=== PATIENT | male | born 2000 | race Caucasian/White ===

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

== ENCOUNTER 2022-01-20 16:15 | Emergency (ER) | payer OTHER ==
[2022-01-20 16:26] VITALS: TEMP 98.8
[2022-01-20] MEDS ORDERED: SODIUM CHLORIDE 0.9% 1,000 ML IV STA (16:43)
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
--- NOTE | 2022-01-20 17:07 | CT ---
EXAMINATION TYPE: CT brain wo con DATE OF EXAM: 01/20/2022 COMPARISON: None HISTORY: fall CT DLP: 1100 mGycm Automated exposure control for dose reduction was used. Images of the brain obtained without contrast. The ventricles and sulci appear normal. There is no mass effect or midline shift. No sign of intracra nial hemorrhage. Calvarium is intact. There is normal aeration of the mastoid sinuses. IMPRESSION: Negative unenhanced head CT scan
[2022-01-20 17:18] LABS: Basophils # (A) 0.1 k/uL (0-0.2); Basophils % (A) 0 %; Eosinophils # (A) 0.2 k/uL (0-0.7); Eosinophils % (A) 1 %; HCT 45.6 % (39.0-53.0); HGB 16.1 gm/dL (13.0-17.5); Lymphocytes # (A) 1.4 k/uL (1.0-4.8); Lymphocytes % (A) 12 %; MCH 29.9 pg (25.0-35.0); MCHC 35.4 g/dL (31.0-37.0); MCV 84.4 fL (80.0-100.0); Mean Platelet Volume 7.8; Monocytes # (A) 0.6 k/uL (0-1.0); Monocytes % (A) 5 %; Neutrophils # (A) 9.6 k/uL (1.3-7.7); Neutrophils % (A) 81 %; Platelet Count 240 k/uL (150-450); RDW 11.3 % (11.5-15.5); WBC 11.9 k/uL (4.0-11.0)
--- NOTE | 2022-01-20 17:29 | CT ---
EXAMINATION TYPE: CT facial bones wo con DATE OF EXAM: 01/20/2022 COMPARISON: None HISTORY: 305.4 CT DLP: left sied facial pain mGycm Automated exposure control for dose reduction was used. Images obtained from the bottom of the mandible to the top of the frontal sinuses with no contrast. The mandibular ring is intact. Temporomandibular joints are intact. Zygomatic arches appear normal. T he maxilla is intact. No evidence of orbital blowout fracture. No evidence of retro-orbital mass. Orb ital margins are intact. There is normal aeration of the temporal bones. There is mild mucosal thicke frances posterior ethmoid sinuses. IMPRESSION: No evidence of traumatic injury of the facial bones. No fracture. Ethmoid sinusitis.
[2022-01-20 17:33] LABS: ALT 16 U/L (4-49); AST 24 U/L (17-59); African American GFR (CKD) >90 (>60 ml/min/1.73 sqM); Albumin 4.8 g/dL (3.5-5.0); Alkaline Phosphatase 53 U/L (38-126); Anion Gap 8 mmol/L; Blood Urea Nitrogen 10 mg/dL (9-20); Calcium 9.3 mg/dL (8.4-10.2); Carbon Dioxide 29 mmol/L (22-30); Chloride 103 mmol/L (98-107); Glucose 95 mg/dL (74-99); Non-African American GFR(CKD) >90 (>60 ml/min/1.73 sqM); Potassium 4.6 mmol/L (3.5-5.1); Sodium 140 mmol/L (137-145); Total Bilirubin 0.8 mg/dL (0.2-1.3); Total Protein 7.2 g/dL (6.3-8.2)
[2022-01-20 18:17] LABS: Appearance,Urine Clear (Clear); Bilirubin,Urine Negative (Negative); Blood,Urine Negative (Negative); Color,Urine Colorless; Glucose,Urine (UA) Negative (Negative); Ketones,Urine Negative (Negative); Leukocyte Esterase,Urine Negative (Negative); Nitrite,Urine Negative (Negative); PH, Urine 7.5 (5.0-8.0); Protein,Urine Negative (Negative); Specific Gravity,Urine 1.003 (1.001-1.035); Urobilinogen,Urine <2.0 mg/dL (<2.0)
[2022-01-20 18:41] LABS: Amphetamine Screen,Urine Not Detected (NotDetected); Barbiturate Screen,Urine Not Detected (NotDetected); Benzodiazepines Screen,Urine Not Detected (NotDetected); Cocaine Screen,Urine Not Detected (NotDetected); Methadone Screen, Urine Not Detected (NotDetected); Opiate Screen,Urine Not Detected (NotDetected); Oxycodone Screen, Urine Not Detected (NotDetected); Phencyclidine Screen,Urine Not Detected (NotDetected); Tricyclic Antidepressant,Urine Not Detected (NotDetected); Urn Cannabinoid Scrn Detected (NotDetected)
[2022-01-20 19:25] VITALS: BP 112/56; PULSE 71; RESP 16
== END 2022-01-20 19:25 | disposition home or self-care (01) ==
LOC: EC 16:15
DX: S06.9X1A Unspecified intracranial injury with loss of consciousness of 30 minutes or less, initial encounter (principal); R55 Syncope and collapse; S00.03XA Contusion of scalp, initial encounter; F17.290 Nicotine dependence, other tobacco product, uncomplicated; F12.90 Cannabis use, unspecified, uncomplicated; Z79.899 Other long term (current) drug therapy; W18.39XA Other fall on same level, initial encounter
CPT/HCPCS: 36415; 70450; 70486; 80053; 80306; 81003; 83605; 85025; 96360; 99284

== ENCOUNTER 2022-03-12 05:43 | Emergency (ER) | payer OTHER ==
[2022-03-12 05:46] VITALS: BP 128/88; PULSE 64; RESP 18; TEMP 97.6
[2022-03-12] MEDS ORDERED: ACET/COD 300 MG/30 MG STARTER PACK 6 TAB BTL PO STA (06:23)
[2022-03-12] MEDS ORDERED: HYDROcodone/APAP 5-325MG 1 EACH TAB PO STA (06:23)
--- NOTE | 2022-03-12 06:29 | ED ---
ENT HPI - General Chief complaint: Dental/Oral Stated complaint: Dental pain Time Seen by Provider: 03/12/22 06:01 Source: patient, RN notes reviewed Mode of arrival: ambulatory Limitations: no limitations - History of Present Illness Initial comments: 21-year-old male presents emergency Department chief complaint of right-sided dental pain. Patient states has been increasing last 2 weeks. Patient states that it's right upper and lower. He's been attempting to get in to the dentist unable to. Patient has NO KNOWN DRUG ALLERGIES. No difficulty swallowing no neck pain neck stiffness no reports of fevers or chills. - Related Data Home Medications Medication Instructions Recorded Confirmed Acetaminophen [Tylenol Extra 1,000 mg PO DAILY PRN 12/02/16 12/02/16 Strength] Dm/Acetaminophen/Doxylamine [Vicks 30 ml PO HS PRN 12/02/16 12/02/16 Nyquil Cold & Flu Liquid] Phenylephrine/Dm/Acetaminop/GG 30 ml PO DAILY PRN 12/02/16 12/02/16 [Vicks Dayquil Severe Cold-Flu] guaiFENesin SYRUP 100MG/5ML 400 mg PO DAILY PRN 12/02/16 12/02/16 [Robitussin] Previous Rx's Medication Instructions Recorded Amoxicillin/Potassium Clav 1 tab PO Q12HR #20 tab 12/02/16 [Augmentin 875-125 Tablet] Hydrocodone/Acetaminophen [[place] 1 each PO Q6HR PRN #15 tab 12/11/16 5-325] Ibuprofen [Motrin] 600 mg PO Q6HR PRN #40 day 12/11/16 Amoxic-Pot Clav 875-125Mg 1 tab PO Q12HR #20 tab 03/12/22 [Augmentin 875-125] Ibuprofen [Motrin] 600 mg PO Q8HR PRN #20 tab 03/12/22 Allergies Allergy/AdvReac Type Severity Reaction Status Date / Time No Known Allergies Allergy Verified 03/12/22 05:44 Review of Systems ROS Statement: Those systems with pertinent positive or pertinent negative responses have been documented in the HPI. ROS Other: All systems not noted in ROS Statement are negative. Past Medical History Past Medical History: No Reported History History of Any Multi-Drug Resistant Organisms: None Reported Past Surgical History: Orthopedic Surgery Past Psychological History: No Psychological Hx Reported Smoking Status: Vaper Past Alcohol Use History: Occasional Past Drug Use History: Marijuana General Exam Limitations: no limitations General appearance: alert, in no apparent distress Head exam: Present: atraumatic, normocephalic, normal inspection Eye exam: Present: normal appearance, PERRL, EOMI. Absent: scleral icterus, conjunctival injection, periorbital swelling ENT exam: Present: mucous membranes moist. Absent: normal exam, normal oropharynx (Right lower and upper posterior molar dental Zandra, dental fractures no drainable abscess) Neck exam: Present: normal inspection, full ROM. Absent: tenderness, meningismus, lymphadenopathy Respiratory exam: Present: normal lung sounds bilaterally. Absent: respiratory distress, wheezes, rales, rhonchi, stridor Cardiovascular Exam: Present: regular rate, normal rhythm, normal heart sounds. Absent: systolic murmur, diastolic murmur, rubs, gallop, clicks GI/Abdominal exam: Present: soft, normal bowel sounds. Absent: distended, tenderness, guarding, rebound, rigid Course Vital Signs 03/12/22 05:45 Temperature 97.6 F Pulse Rate 64 Respiratory 18 Rate Blood Pressure 128/88 O2 Sat by Pulse 98 Oximetry Medical Decision Making - Medical Decision Making 21-year-old male presented for dental pain. Patient be discharged with pain control, antibiotics. Was pt. sent in by a medical professional or institution? @ -no Did you speak to anyone other than the patient for history? @ -no Did you review nursing and triage notes? @ -agree and reviewed Were old charts reviewed? @ -no Differential Diagnosis? @ -Dental infection, dental fracture, dental caries, dental abscess, this is not meant to be all-inclusive EKG interpreted by me (3pts min.)? @ -No X-rays interpreted by me (1pt min.)? @ -none CT interpreted by me (1pt min.)? @ none U/S interpreted by me (1pt. min.)? @ none What testing was considered but not performed? (CT, X-rays, U/S, labs)? Why? @ no What meds were considered but not given? Why? @ no Did you discuss the management of the patient with other professionals? @ -no Did you reconcile home meds? @ -no Was smoking cessation discussed for >3mins.? @ -I discussed smoking cessation for greater than 3 minutes. The risk of smoking were discussed with the patient including but not limited to risks of cancer, stroke, coronary artery disease and COPD. Also discussed with patient were multiple methods of quitting smoking. Lastly we discussed the financial cost of smoking. Was critical care preformed (if so, how long)? @ -no Were there social determinants of health that impacted care today? How? (Homelessness, low income, unemployed, alcoholism, drug addiction, transportation, low edu. Level, literacy, decrease access to med. care, intermediate, rehab)? @ -no Was there de-escalation of care discussed even if they declined? (Discuss DNR or withdrawal of care, Hospice)? @ -no What co-morbidities impacted this encounter? (DM, HTN, Smoking, COPD, CAD, Cancer, CVA, Hep., AIDS, mental health diagnosis, sleep apnea, morbid obesity)? @ -smoking Was patient admitted / discharged? @ -discharged Undiagnosed new problem with uncertain prognosis? @ -none Drug Therapy requiring intensive monitoring for toxicity (Heparin, Nitro, I nsulin, Cardizem)? @ -none Were any procedures done? @ -no Diagnosis/symptom? @ -Dental infection Acute, or Chronic, or Acute on Chronic? @ -acute Uncomplicated (without systemic symptoms) or Complicated (systemic symptoms)? @ -uncomplicated Side effects of treatment? @ -none Exacerbation, Progression, or Severe Exacerbation] @ -no Poses a threat to life or bodily function? @ -no Diagnosis/symptom? @ -Dental fracture Acute, or Chronic, or Acute on Chronic? @ -Acute Uncomplicated (without systemic symptoms) or Complicated (systemic symptoms)? @ -Uncomplicated Side effects of treatment? @ -no Exacerbation, Progression, or Severe Exacerbation] @ no Poses a threat to life or bodily function? @ -no Disposition Clinical Impression: Toothache, Dental infection, Fracture of tooth Disposition: HOME SELF-CARE Condition: Stable Instructions (If sedation given, give patient instructions): Toothache (ED) Additional Instructions: Please return to the Emergency Department if symptoms worsen or any other concerns. Prescriptions: Amoxic-Pot Clav 875-125Mg [Augmentin 875-125] 1 tab PO Q12HR #20 tab Ibuprofen [Motrin] 600 mg PO Q8HR PRN #20 tab PRN Reason: Pain Is patient prescribed a controlled substance at d/c from ED?: No Referrals: Suzie Norman MD [Primary Care Provider] - 1-2 days Time of Disposition: 06:29
== END 2022-03-12 07:14 | disposition home or self-care (01) ==
LOC: EC 05:43
DX: S02.5XXA Fracture of tooth (traumatic), initial encounter for closed fracture (principal); F17.290 Nicotine dependence, other tobacco product, uncomplicated; F12.90 Cannabis use, unspecified, uncomplicated; X58.XXXA Exposure to other specified factors, initial encounter
CPT/HCPCS: 99282

== ENCOUNTER 2022-06-23 02:07 | Emergency (ER) | payer OTHER ==
[2022-06-23 02:14] VITALS: RESP 14; TEMP 96.9
[2022-06-23] MEDS ORDERED: SODIUM CHLORIDE 0.9% 1,000 ML IV ONE (02:23)
[2022-06-23] MEDS ORDERED: ONDANSETRON 4 MG/2 ML VIAL IVP STA (02:23)
[2022-06-23] MEDS ORDERED: ONDANSETRON 4 MG ODT STARTER PACK 2 TAB BTL PO STA (03:32)
--- NOTE | 2022-06-23 03:32 | ED ---
Alcohol HPI - General Chief Complaint: Alcohol Stated Complaint: ETOH Time Seen by Provider: 06/23/22 02:19 Source: family Mode of arrival: wheelchair Limitations: altered mental status - History of Present Illness Initial Comments: Patient is a 22-year-old male presenting with alcohol intoxication. Patient's mother is present, states that the patient had several drinks this evening with family members. At home he began vomiting and complaining of some abdominal pain. At this time the patient is sleeping, answers questions with one-word answers. No acute distress. No hypoxia. He is able to maintain his airway. - Related Data Home Medications Medication Instructions Recorded Confirmed Acetaminophen [Tylenol Extra 1,000 mg PO DAILY PRN 12/02/16 12/02/16 Strength] Dm/Acetaminophen/Doxylamine [Vicks 30 ml PO HS PRN 12/02/16 12/02/16 Nyquil Cold & Flu Liquid] Phenylephrine/Dm/Acetaminop/GG 30 ml PO DAILY PRN 12/02/16 12/02/16 [Vicks Dayquil Severe Cold-Flu] guaiFENesin SYRUP 100MG/5ML 400 mg PO DAILY PRN 12/02/16 12/02/16 [Robitussin] Previous Rx's Medication Instructions Recorded Amoxicillin/Potassium Clav 1 tab PO Q12HR #20 tab 12/02/16 [Augmentin 875-125 Tablet] Hydrocodone/Acetaminophen [[place] 1 each PO Q6HR PRN #15 tab 12/11/16 5-325] Ibuprofen [Motrin] 600 mg PO Q6HR PRN #40 day 12/11/16 Amoxic-Pot Clav 875-125Mg 1 tab PO Q12HR #20 tab 03/12/22 [Augmentin 875-125] Amoxic-Pot Clav 875-125Mg 1 tab PO Q12HR #20 tab 03/12/22 [Augmentin 875-125] HYDROcodone/APAP 5-325MG [[place] 1 tab PO Q6HR PRN 3 Days #12 tab 03/12/22 5-325] Ibuprofen [Motrin] 600 mg PO Q8HR PRN #20 tab 03/12/22 Ibuprofen [Motrin] 600 mg PO Q8HR PRN #20 tab 03/12/22 Allergies Allergy/AdvReac Type Severity Reaction Status Date / Time No Known Allergies Allergy Verified 06/23/22 02:11 Review of Systems ROS Statement: Those systems with pertinent positive or pertinent negative responses have been documented in the HPI. ROS Other: All systems not noted in ROS Statement are negative. Past Medical History Past Medical History: No Reported History History of Any Multi-Drug Resistant Organisms: None Reported Past Surgical History: Orthopedic Surgery Past Psychological History: No Psychological Hx Reported Smoking Status: Vaper Past Alcohol Use History: Occasional Past Drug Use History: Marijuana General Exam Limitations: altered mental status General appearance: in no apparent distress, appears intoxicated Head exam: Present: atraumatic, normocephalic, normal inspection Neck exam: Present: normal inspection Respiratory exam: Present: normal lung sounds bilaterally. Absent: respiratory distress, wheezes, rales, rhonchi, stridor Cardiovascular Exam: Present: regular rate, normal rhythm, normal heart sounds. Absent: systolic murmur, diastolic murmur, rubs, gallop, clicks Neurological exam: Present: altered Psychiatric exam: Present: normal affect, normal mood Skin exam: Present: warm, dry, intact, normal color. Absent: rash Course Vital Signs 06/23/22 02:12 Temperature 96.9 F L Pulse Rate 74 Respiratory 14 Rate Blood Pressure 122/78 O2 Sat by Pulse 94 L Oximetry Medical Decision Making - Medical Decision Making Was pt. sent in by a medical professional or institution (IVANNA Villatoro, ENROLLED AGENT, urgent care, hospital, or [facility]...) When possible be specific @ -No Did you speak to anyone other than the patient for history (EMS, parent, family, police, friend...)? What history was obtained from this source @ -Spoke to mother who gave majority of history Did you review nursing and triage notes (agree or disagree)? Why? @ -I reviewed and agree with nursing and triage notes Were old charts reviewed (outside hosp., previous admission, EMS record, old EKG, old radiological studies, urgent care reports/EKG's, [facility] records)? Report findings @ -No old charts were reviewed Differential Diagnosis (chest pain, altered mental status, abdominal pain women, abdominal pain men, vaginal bleeding, weakness, fever, dyspnea, syncope, headache, dizziness, GI bleed, back pain, seizure, CVA, palpatations, mental health, musculoskeletal)? @ -not applicable EKG interpreted by me (3pts min.). @ -As above X-rays interpreted by me (1pt min.). @ -None done CT interpreted by me (1pt min.). @ -None done U/S interpreted by me (1pt. min.). @ -None done What testing was considered but not performed or refused? (CT, X-rays, U/S, labs)? Why? @ -None What meds were considered but not given or refused? Why? @ -None Did you discuss the management of the patient with other professionals (professionals i.e. , PA, ENROLLED AGENT, lab, RT, psych nurse, school social worker, renewable energy trader, teacher, global chief experience officer, pillowcase turner)? Give summary @ -No Was smoking cessation discussed for >3mins.? @ -No Was critical care preformed (if so, how long)? @ -No Were there social determinants of health that impacted care today? How? (Homelessness, low income, unemployed, alcoholism, drug addiction, transportation, low edu. Level, literacy, decrease access to med. care, usp, rehab)? @ -No Was there de-escalation of care discussed even if they declined (Discuss DNR or withdrawal of care, Hospice)? DNR status @ -No What co-morbidities impacted this encounter? (DM, HTN, Smoking, COPD, CAD, Cancer, CVA, ARF, Chemo, Hep., AIDS, mental health diagnosis, sleep apnea, morbid obesity)? @ -None Was patient admitted / discharged? Hospital course, mention meds given and route, prescriptions, significant lab abnormalities, going to OR and other pertinent info. @ -Patient is a 22-year-old male presenting for alcohol intoxication. The patient's mother states that he had several drinks with family members this evening, at home he was complaining of abdominal discomfort and vomiting. On physical examination patient is maintaining his airway, he is able to answer questions with brief answers. No hypoxia. Able to arouse. He is given 1 L normal saline and Zofran. On reassessment patient remains stable condition. He'll be discharged home into the care of his mother. Follow-up with PCP. Report back to ER with any new or worsening symptoms. Discussed return parameters and answered all questions. Patient's mother conveyed verbal understanding and agreed to the plan. I discussed this case in detail with my attending Dr. Nash Undiagnosed new problem with uncertain prognosis? @ -No Drug Therapy requiring intensive monitoring for toxicity (Heparin, Nitro, Insulin, Cardizem)? @ -No Were any procedures done? @ -No Diagnosis/symptom? @ -Alcohol intoxication Acute, or Chronic, or Acute on Chronic? @ -Acute Uncomplicated (without systemic symptoms) or Complicated (systemic symptoms)? @ -complicated Side effects of treatment? @ -No Exacerbation, Progression, or Severe Exacerbation? @ -No Poses a threat to life or bodily function? How? (Chest pain, [place], [place], pneumonia, PE, COPD, DKA, ARF, appy, cholecystitis, CVA, Diverticulitis, Homicidal, Suicidal, threat to staff... and all critical care pts) @ - Disposition Clinical Impression: Alcoholic intoxication Disposition: HOME SELF-CARE Condition: Good Instructions (If sedation given, give patient instructions): Alcohol Intoxication (ED) Additional Instructions: Report back to ER with any new or worsening symptoms Is patient prescribed a controlled substance at d/c from ED?: No Referrals: Suzie Norman MD [Primary Care Provider] - 1-2 days Time of Disposition: 03:32
[2022-06-23 03:42] VITALS: BP 111/62; PULSE 65
== END 2022-06-23 03:42 | disposition home or self-care (01) ==
LOC: EC 02:07
DX: F10.129 Alcohol abuse with intoxication, unspecified (principal); F17.290 Nicotine dependence, other tobacco product, uncomplicated; F12.90 Cannabis use, unspecified, uncomplicated
CPT/HCPCS: 99283; 96374; 96361; J2405; S0119; 99284

== ENCOUNTER 2022-08-10 10:06 | Emergency (ER) | payer OTHER ==
[2022-08-10] MEDS ORDERED: IPRATROPIUM-ALBUTEROL 3 ML NEB INHALATION STA (10:21)
[2022-08-10] MEDS ORDERED: OXYMETAZOLINE 0.05% NASL SPRAY 1 SPRAY BOTTLE NASAL STA (10:21)
[2022-08-10] MEDS ORDERED: DEXAMETHASONE SOD PHOSPHATE 10 MG/ML 1 ML VIAL IM STA (10:22)
--- NOTE | 2022-08-10 10:26 | ED ---
URI HPI - General Chief Complaint: Upper Respiratory Infection Stated Complaint: congestion,sore throat Time Seen by Provider: 08/10/22 10:08 Source: patient, RN notes reviewed Mode of arrival: ambulatory Limitations: no limitations - History of Present Illness Initial Comments: This is a 22-year-old male who presents to the emergency department for a sore throat and congestion. States that this started yesterday with a sore throat. The sore throat has started to improve, and his primary symptom at this time is congestion. He tried using a neti pot, but states that he felt like this made his ears more clogged. He has a nonproductive cough that is triggered by nasal drainage. He feels like the congestion makes it hard to take a deep breath, but has otherwise not had any shortness of breath or chest pain. Denies any fevers or sick contacts. Denies any fevers, chills, chest pain, palpitations, abdominal pain, nausea, vomiting, diarrhea, back pain, or headaches. MD Complaint: cough, sore throat, nasal congestion Onset/Timin -: days(s) - Related Data Home Medications Medication Instructions Recorded Confirmed Acetaminophen [Tylenol Extra 1,000 mg PO DAILY PRN 12/02/16 12/02/16 Strength] Dm/Acetaminophen/Doxylamine [Vicks 30 ml PO HS PRN 12/02/16 12/02/16 Nyquil Cold & Flu Liquid] Phenylephrine/Dm/Acetaminop/GG 30 ml PO DAILY PRN 12/02/16 12/02/16 [Vicks Dayquil Severe Cold-Flu] guaiFENesin SYRUP 100MG/5ML 400 mg PO DAILY PRN 12/02/16 12/02/16 [Robitussin] Previous Rx's Medication Instructions Recorded Amoxicillin/Potassium Clav 1 tab PO Q12HR #20 tab 12/02/16 [Augmentin 875-125 Tablet] Hydrocodone/Acetaminophen [[place] 1 each PO Q6HR PRN #15 tab 12/11/16 5-325] Ibuprofen [Motrin] 600 mg PO Q6HR PRN #40 day 12/11/16 Amoxic-Pot Clav 875-125Mg 1 tab PO Q12HR #20 tab 03/12/22 [Augmentin 875-125] Amoxic-Pot Clav 875-125Mg 1 tab PO Q12HR #20 tab 03/12/22 [Augmentin 875-125] HYDROcodone/APAP 5-325MG [[place] 1 tab PO Q6HR PRN 3 Days #12 tab 03/12/22 5-325] Ibuprofen [Motrin] 600 mg PO Q8HR PRN #20 tab 03/12/22 Ibuprofen [Motrin] 600 mg PO Q8HR PRN #20 tab 03/12/22 Albuterol Inhaler [Ventolin Hfa 1 - 2 puff INHALATION Q6H PRN #1 08/10/22 Inhaler] each Ipratropium [place] 0.06%Nasal 2 spray EA NOSTRIL BID #15 ml 08/10/22 [Atrovent Nasal 0.06%] Allergies Allergy/AdvReac Type Severity Reaction Status Date / Time No Known Allergies Allergy Verified 08/10/22 10:11 Review of Systems ROS Statement: Those systems with pertinent positive or pertinent negative responses have been documented in the HPI. ROS Other: All systems not noted in ROS Statement are negative. Past Medical History Past Medical History: No Reported History History of Any Multi-Drug Resistant Organisms: None Reported Past Surgical History: Orthopedic Surgery Past Psychological History: No Psychological Hx Reported Smoking Status: Vaper Past Alcohol Use History: Occasional Past Drug Use History: Marijuana General Exam Limitations: no limitations General appearance: alert, in no apparent distress Head exam: Present: atraumatic, normocephalic, normal inspection ENT exam: Present: normal exam, normal oropharynx, mucous membranes moist, TM's normal bilaterally, normal external ear exam Respiratory exam: Present: normal lung sounds bilaterally. Absent: respiratory distress, wheezes, rales, rhonchi, stridor Cardiovascular Exam: Present: regular rate, normal rhythm, normal heart sounds. Absent: systolic murmur, diastolic murmur, rubs, gallop, clicks Neurological exam: Present: alert, oriented X3, CN II-XII intact Psychiatric exam: Present: normal affect, normal mood Skin exam: Present: warm, dry, intact, normal color. Absent: rash Course Vital Signs 08/10/22 08/10/22 08/10/22 10:10 10:52 12:15 Temperature 98.3 F Pulse Rate 88 76 76 Respiratory 22 Rate Blood Pressure 119/76 O2 Sat by Pulse 97 97 Oximetry 08/10/22 08/10/22 08/10/22 12:22 12:24 12:57 Temperature 98.1 F 98.2 F Pulse Rate 80 76 72 Respiratory 14 14 Rate Blood Pressure 115/76 112/76 O2 Sat by Pulse 98 99 Oximetry Medical Decision Making - Medical Decision Making This is a 22-year-old male who presents to the emergency department for congestion and a sore throat. Was pt. sent in by a medical professional or institution? @ -No Did you speak to anyone other than the patient for history? @ -No Did you review nursing and triage notes? @ -Yes, and I agree, it is accurate with regards to the patient's symptoms. Were old charts reviewed? @ -No Differential Diagnosis? @ -Differential Sore Throat: Strep pharyngitis, herpes zoster, COVID, influenza, GERD, allergic rhinitis, mononucleosis, this is not meant to be an all-inclusive list. EKG interpreted by me (3pts min.)? @ -Not obtained X-rays interpreted by me (1pt min.)? @ -Not obtained CT interpreted by me (1pt min.)? @ -Not obtained U/S interpreted by me (1pt. min.)? @ -Not obtained What testing was considered but not performed? (CT, X-rays, U/S, labs)? Why? @ -None What meds were considered but not given? Why? @ -None Did you discuss the management of the patient with other professionals? @ -No Did you reconcile home meds? @ -No Was smoking cessation discussed for >3mins.? @ -No Was critical care preformed (if so, how long)? @ -No Were there social determinants of health that impacted care today? How? (Homelessness, low income, unemployed, alcoholism, drug addiction, transportation, low edu. Level, literacy, decrease access to med. care, snf, rehab)? @ -No Was there de-escalation of care discussed even if they declined? (Discuss DNR or withdrawal of care, Hospice)? @ -No What co-morbidities impacted this encounter? (DM, HTN, Smoking, COPD, CAD, Cancer, CVA, Hep., AIDS, mental health diagnosis, sleep apnea, morbid obesity)? @ -None Was patient admitted / discharged? @ -Discharged. COVID, influenza, RSV, and strep testing were negative. Duoneb breathing treatment administered with improvement in symptoms. Advised the patient that this is most likely viral in nature. Afrin nasal spray provided, which he states was beneficial in terms of helping the congestion and feeling of fullness in the ears. Instructed him to avoid using this for more than 3 days due to the risk of dependence. Prescription for albuterol inhaler and ipratropium nasal spray provided with dosing instructions reviewed. Advised that if his nose becomes too dry, he should stop using the nasal sprays provided and use saline nasal spray instead to help moisturize the nasal passages. Otherwise advised to continue with supportive care. Undiagnosed new problem with uncertain prognosis? @ -None Drug Therapy requiring intensive monitoring for toxicity (Heparin, Nitro, Insulin, Cardizem)? @ -None Were any procedures done? @ -None Diagnosis/symptom? @ -Viral URI Acute, or Chronic, or Acute on Chronic? @ -Acute Uncomplicated (without systemic symptoms) or Complicated (systemic symptoms)? @ -Uncomplicated Side effects of treatment? @ -None Exacerbation, Progression, or Severe Exacerbation] @ -Not applicable Poses a threat to life or bodily function? @ -No Return precautions reviewed in depth, the patient is instructed to return to the emergency department with any new, worsening, or concerning symptoms. Patient verbalized understanding. This case was discussed in detail with the attending ED physician, Dr. Gutierrez. Presentation, findings, and treatment plan discussed in detail as well. - Lab Data Lab Results 08/10/22 08/10/22 Range/Units 10:33 10:33 Influenza Type A (PCR) Not Detected (Not Detectd) Influenza Type B (PCR) Not Detected (Not Detectd) RSV (PCR) Not Detected (Not Detectd) SARS-CoV-2 (PCR) Not Detected (Not Detectd) Group A Strep (PCR) NOT DETECTED (Not Detectd) Disposition Clinical Impression: Viral URI Disposition: HOME SELF-CARE Instructions (If sedation given, give patient instructions): Upper Respiratory Infection (ED) Additional Instructions: Return to the emergency department with any new, worsening, or concerning symptoms. You can use the decongestant nasal spray provided here and the ipratropium nasal spray prescribed as needed a few times daily for symptomatic management. Do not use the decongestant nasal spray for more than 3 days due to the risk of becoming dependent on it. The ipratropium nasal spray will help with postnasal drainage. This can be used for 4-5 days. You can use the albuterol inhaler every 4-6 hours as needed for shortness of breath. Follow up with your primary care provider in 1-2 days. Prescriptions: Ipratropium [place] 0.06%Nasal [Atrovent Nasal 0.06%] 2 spray EA NOSTRIL BID #15 ml Albuterol Inhaler [Ventolin Hfa Inhaler] 1 - 2 puff INHALATION Q6H PRN #1 each PRN Reason: Shortness Of Breath Is patient prescribed a controlled substance at d/c from ED?: No Referrals: Suzie Norman MD [Primary Care Provider] - 1-2 days
[2022-08-10 12:27] VITALS: RESP 14
[2022-08-10 12:59] VITALS: BP 112/76; PULSE 72; TEMP 98.2
== END 2022-08-10 12:59 | disposition home or self-care (01) ==
LOC: EC 10:06
DX: J06.9 Acute upper respiratory infection, unspecified (principal); F12.90 Cannabis use, unspecified, uncomplicated; F17.290 Nicotine dependence, other tobacco product, uncomplicated; Z20.822 Contact with and (suspected) exposure to COVID-19
CPT/HCPCS: 94640; 87651; 87636; 99283; 96372; J1100

== ENCOUNTER 2022-12-16 02:33 | Emergency (ER) | payer OTHER ==
[2022-12-16] MEDS ORDERED: KETOROLAC 15 MG/ML 1 ML VIAL IM STA (02:52)
[2022-12-16] MEDS ORDERED: HYDROcodone/APAP 7.5-325MG 1 EACH TAB PO ONE (02:52)
--- NOTE | 2022-12-16 02:52 | ED ---
ENT HPI - General Chief complaint: Dental/Oral Stated complaint: Dental Pain Time Seen by Provider: 12/16/22 02:43 Source: patient Mode of arrival: ambulatory Limitations: no limitations - History of Present Illness Initial comments: 22-year-old male presenting with chief complaint of dental pain. Pain is been ongoing for the last 2 days. Located on the left lower side. Patient has a known dental carry to this region. He states that is very difficult to get in with his dentist. No difficulty breathing or swallowing. No fevers or chills. No headache or neck pain. - Related Data Home Medications Medication Instructions Recorded Confirmed Acetaminophen [Tylenol Extra 1,000 mg PO DAILY PRN 12/02/16 12/02/16 Strength] Dm/Acetaminophen/Doxylamine [Vicks 30 ml PO HS PRN 12/02/16 12/02/16 Nyquil Cold & Flu Liquid] Phenylephrine/Dm/Acetaminop/GG 30 ml PO DAILY PRN 12/02/16 12/02/16 [Vicks Dayquil Severe Cold-Flu] guaiFENesin SYRUP 100MG/5ML 400 mg PO DAILY PRN 12/02/16 12/02/16 [Robitussin] Previous Rx's Medication Instructions Recorded Amoxicillin/Potassium Clav 1 tab PO Q12HR #20 tab 12/02/16 [Augmentin 875-125 Tablet] Hydrocodone/Acetaminophen [[place] 1 each PO Q6HR PRN #15 tab 12/11/16 5-325] Ibuprofen [Motrin] 600 mg PO Q6HR PRN #40 day 12/11/16 Amoxic-Pot Clav 875-125Mg 1 tab PO Q12HR #20 tab 03/12/22 [Augmentin 875-125] Amoxic-Pot Clav 875-125Mg 1 tab PO Q12HR #20 tab 03/12/22 [Augmentin 875-125] HYDROcodone/APAP 5-325MG [[place] 1 tab PO Q6HR PRN 3 Days #12 tab 03/12/22 5-325] Ibuprofen [Motrin] 600 mg PO Q8HR PRN #20 tab 03/12/22 Ibuprofen [Motrin] 600 mg PO Q8HR PRN #20 tab 03/12/22 Albuterol Inhaler [Ventolin Hfa 1 - 2 puff INHALATION Q6H PRN #1 08/10/22 Inhaler] each Ipratropium [place] 0.06%Nasal 2 spray EA NOSTRIL BID #15 ml 08/10/22 [Atrovent Nasal 0.06%] Acetaminophen-Codeine 300-30mg 1 tab PO Q6H PRN 3 Days #12 tablet 12/16/22 [Tylenol w/codeine #3] Amoxic-Pot Clav 875-125Mg 1 tab PO BID 7 Days #14 tab 12/16/22 [Augmentin 875-125] Allergies Allergy/AdvReac Type Severity Reaction Status Date / Time No Known Allergies Allergy Verified 08/10/22 10:11 Review of Systems ROS Statement: Those systems with pertinent positive or pertinent negative responses have been documented in the HPI. ROS Other: All systems not noted in ROS Statement are negative. Past Medical History Past Medical History: No Reported History History of Any Multi-Drug Resistant Organisms: None Reported Past Surgical History: Orthopedic Surgery Past Psychological History: No Psychological Hx Reported Smoking Status: Vaper Past Alcohol Use History: Occasional Past Drug Use History: Marijuana General Exam Limitations: no limitations General appearance: alert, in no apparent distress Head exam: Present: atraumatic, normocephalic, normal inspection Eye exam: Present: normal appearance, EOMI Expanded Mouth exam: Present: normal external inspection, tongue normal. Absent: drooling, trismus, muffled voice Teeth exam: Present: dental caries, dental tenderness # Throat exam: normal inspection Neck exam: Present: normal inspection, full ROM Respiratory exam: Absent: respiratory distress Neurological exam: Present: alert, oriented X3 Psychiatric exam: Present: normal affect, normal mood Skin exam: Present: warm, dry. Absent: rash Course Vital Signs 12/16/22 02:38 Temperature 97.8 F Pulse Rate 63 Respiratory 18 Rate Blood Pressure 126/78 O2 Sat by Pulse 98 Oximetry Medical Decision Making - Medical Decision Making Was pt. sent in by a medical professional or institution (, PA, PSYCHIATRIC ASSISTANT, urgent care, hospital, or prison...) When possible be specific @ -No Did you speak to anyone other than the patient for history (EMS, parent, family, police, friend...)? What history was obtained from this source @ -No Did you review nursing and triage notes (agree or disagree)? Why? @ -I reviewed and agree with nursing and triage notes Were old charts reviewed (outside hosp., previous admission, EMS record, old EKG, old radiological studies, urgent care reports/EKG's, prison records)? Report findings @ -No old charts were reviewed Differential Diagnosis (chest pain, altered mental status, abdominal pain women, abdominal pain men, vaginal bleeding, weakness, fever, dyspnea, syncope, headache, dizziness, GI bleed, back pain, seizure, CVA, palpatations, mental health, musculoskeletal)? @ -Differential includes dental pain, dental abscess, Akil's angina EKG interpreted by me (3pts min.). @ -As above X-rays interpreted by me (1pt min.). @ -None done CT interpreted by me (1pt min.). @ -None done U/S interpreted by me (1pt. min.). @ -None done What testing was considered but not performed or refused? (CT, X-rays, U/S, labs)? Why? @ -None What meds were considered but not given or refused? Why? @ -None Did you discuss the management of the patient with other professionals (professionals i.e. , PA, PSYCHIATRIC ASSISTANT, lab, RT, psych nurse, social science professor, door captain, teacher, education officer, caser up)? Give summary @ -No Was smoking cessation discussed for >3mins.? @ -No Was critical care preformed (if so, how long)? @ -No Were there social determinants of health that impacted care today? How? (Homelessness, low income, unemployed, alcoholism, drug addiction, transportation, low edu. Level, literacy, decrease access to med. care, alf, rehab)? @ -No Was there de-escalation of care discussed even if they declined (Discuss DNR or withdrawal of care, Hospice)? DNR status @ -No What co-morbidities impacted this encounter? (DM, HTN, Smoking, COPD, CAD, Cancer, CVA, ARF, Chemo, Hep., AIDS, mental health diagnosis, sleep apnea, morbid obesity)? @ -None Was patient admitted / discharged? Hospital course, mention meds given and route, prescriptions, significant lab abnormalities, going to OR and other pertinent info. @ -22-year-old male presenting with chief complaint of dental pain ongoing for 2 days. No trismus or muffled voice. Normal posterior pharynx. There is notable decay to the bottom left molar. Patient will be given Tylenol 3 for pain and Augmentin for potential infection. Instructed to follow up with dentist. Follow-up with PCP. Report back to ER with any new or worsening symptoms. Discussed return parameters and answered all questions. Patient conveyed verbal understanding and agreed to the plan. I discussed this case in detail with my attending Dr. Ayon Undiagnosed new problem with uncertain prognosis? @ -No Drug Therapy requiring intensive monitoring for toxicity (Heparin, Nitro, Insulin, Cardizem)? @ -No Were any procedures done? @ -No Diagnosis/symptom? @ -Dental abscess Acute, or Chronic, or Acute on Chronic? @ -Acute Uncomplicated (without systemic symptoms) or Complicated (systemic symptoms)? @ -Uncomplicated Side effects of treatment? @ -No Exacerbation, Progression, or Severe Exacerbation? @ -No Poses a threat to life or bodily function? How? (Chest pain, USA, MA, pneumonia, PE, COPD, DKA, ARF, appy, cholecystitis, CVA, Diverticulitis, Homicidal, Suicidal, threat to staff... and all critical care pts) @ -No Disposition Clinical Impression: Dental abscess Disposition: HOME SELF-CARE Condition: Good Instructions (If sedation given, give patient instructions): Dental Abscess (ED) Additional Instructions: Follow-up with PCP. Report back to ER if any new or worsening symptoms. Please follow up with the [facility] dental clinic. [facility] [place] [address]. Phone number for new patients or [phone] for existing patients. Prescriptions: Amoxic-Pot Clav 875-125Mg [Augmentin 875-125] 1 tab PO BID 7 Days #14 tab Acetaminophen-Codeine 300-30mg [Tylenol w/codeine #3] 1 tab PO Q6H PRN 3 Days #12 tablet PRN Reason: Pain Is patient prescribed a controlled substance at d/c from ED?: No Referrals: Suzie Norman MD [Primary Care Provider] - 1-2 days Time of Disposition: 02:50
[2022-12-16 03:04] VITALS: BP 126/78; PULSE 63; RESP 18; TEMP 97.8
== END 2022-12-16 03:13 | disposition home or self-care (01) ==
LOC: EC 02:33
DX: K04.7 Periapical abscess without sinus (principal); F17.290 Nicotine dependence, other tobacco product, uncomplicated
CPT/HCPCS: 99282; 96372; J1885

== ENCOUNTER 2023-04-26 09:32 | Emergency (ER) | payer OTHER ==
[2023-04-26 10:02] VITALS: TEMP 98.7
[2023-04-26] MEDS: SODIUM CHLORIDE 0.9% 1,000 ML IV STA (10:42)
[2023-04-26] MEDS: ONDANSETRON 4 MG/2 ML VIAL IVP STA (10:42)
[2023-04-26] MEDS: MORPHINE SULFATE 4 MG/ML SYRINGE IV STA (10:43)
--- NOTE | 2023-04-26 10:45 | ED ---
General Adult HPI - General Chief complaint: Nausea/Vomiting/Diarrhea Stated complaint: vomiting Time Seen by Provider: 04/26/23 09:50 Source: patient, RN notes reviewed Mode of arrival: ambulatory Limitations: no limitations - History of Present Illness Initial comments: 22-year-old male presents to the emergency room for a chief complaint of nausea vomiting. Patient states that for the past 3 days he has not been able to keep much down and has been vomiting frequently. He also has abdominal pain. The last time this happened he had coronavirus. He has felt chilled but has not had true fevers.Patient has no other complaints at this time including shortness of breath, chest pain, headache, or visual changes. - Related Data Home Medications Medication Instructions Recorded Confirmed Acetaminophen [Tylenol Extra 1,000 mg PO DAILY PRN 12/02/16 12/02/16 Strength] Dm/Acetaminophen/Doxylamine [Vicks 30 ml PO HS PRN 12/02/16 12/02/16 Nyquil Cold & Flu Liquid] Phenylephrine/Dm/Acetaminop/GG 30 ml PO DAILY PRN 12/02/16 12/02/16 [Vicks Dayquil Severe Cold-Flu] guaiFENesin SYRUP 100MG/5ML 400 mg PO DAILY PRN 12/02/16 12/02/16 [Robitussin] Previous Rx's Medication Instructions Recorded Amoxicillin/Potassium Clav 1 tab PO Q12HR #20 tab 12/02/16 [Augmentin 875-125 Tablet] Hydrocodone/Acetaminophen [[place] 1 each PO Q6HR PRN #15 tab 12/11/16 5-325] Ibuprofen [Motrin] 600 mg PO Q6HR PRN #40 day 12/11/16 Amoxic-Pot Clav 875-125Mg 1 tab PO Q12HR #20 tab 03/12/22 [Augmentin 875-125] Amoxic-Pot Clav 875-125Mg 1 tab PO Q12HR #20 tab 03/12/22 [Augmentin 875-125] HYDROcodone/APAP 5-325MG [[place] 1 tab PO Q6HR PRN 3 Days #12 tab 03/12/22 5-325] Ibuprofen [Motrin] 600 mg PO Q8HR PRN #20 tab 03/12/22 Ibuprofen [Motrin] 600 mg PO Q8HR PRN #20 tab 03/12/22 Albuterol Inhaler [Ventolin Hfa 1 - 2 puff INHALATION Q6H PRN #1 08/10/22 Inhaler] each Ipratropium [place] 0.06%Nasal 2 spray EA NOSTRIL BID #15 ml 08/10/22 [Atrovent Nasal 0.06%] Acetaminophen-Codeine 300-30mg 1 tab PO Q6H PRN 3 Days #12 tablet 12/16/22 [Tylenol w/codeine #3] Amoxic-Pot Clav 875-125Mg 1 tab PO BID 7 Days #14 tab 12/16/22 [Augmentin 875-125] Ondansetron Odt [Zofran Odt] 4 mg PO Q8HR PRN #14 tab 04/26/23 Allergies Allergy/AdvReac Type Severity Reaction Status Date / Time No Known Allergies Allergy Verified 04/26/23 09:38 Review of Systems ROS Statement: Those systems with pertinent positive or pertinent negative responses have been documented in the HPI. ROS Other: All systems not noted in ROS Statement are negative. Past Medical History Past Medical History: No Reported History History of Any Multi-Drug Resistant Organisms: None Reported Past Surgical History: Orthopedic Surgery Past Psychological History: No Psychological Hx Reported Smoking Status: Vaper Past Alcohol Use History: Occasional Past Drug Use History: Marijuana General Exam Limitations: no limitations General appearance: alert, in no apparent distress Head exam: Present: atraumatic Eye exam: Present: normal appearance, PERRL, EOMI. Absent: scleral icterus, conjunctival injection ENT exam: Present: normal exam, mucous membranes moist Neck exam: Present: normal inspection, full ROM. Absent: tenderness Respiratory exam: Present: normal lung sounds bilaterally. Absent: respiratory distress, wheezes Cardiovascular Exam: Present: regular rate, normal rhythm, normal heart sounds GI/Abdominal exam: Present: soft, tenderness (Minimal left upper and lower quadrant tenderness without guarding or rebound. No right upper or lower quadrant tenderness.), normal bowel sounds. Absent: distended, guarding, rebound Neurological exam: Present: alert Course Vital Signs 04/26/23 04/26/23 09:36 10:50 Temperature 98.7 F Pulse Rate 70 Respiratory 20 18 Rate Blood Pressure 115/81 117/69 O2 Sat by Pulse 99 98 Oximetry Medical Decision Making - Medical Decision Making Was pt. sent in by a medical professional or institution (Dr., PA, TIMBER SELECTOR, urgent care, hospital, or fci...) When possible be specific @ -[No] Did you speak to anyone other than the patient for history (EMS, parent, family, police, friend...)? What history was obtained from this source @ -[No] Did you review nursing and triage notes (agree or disagree)? Why? @ -[I reviewed and agree with nursing and triage notes] Were old charts reviewed (outside hosp., previous admission, EMS record, old EKG, old radiological studies, urgent care reports/EKG's, fci records)? Report findings @ -[No old charts were reviewed] Differential Diagnosis (chest pain, altered mental status, abdominal pain women, abdominal pain men, vaginal bleeding, weakness, fever, dyspnea, syncope, headache, dizziness, GI bleed, back pain, seizure, CVA, palpatations, mental health)? @ -Differential Abdominal Pain Women: Appendicitis, Cholecystitis, diverticulosis, ischemic bowel, pancreatitis, hepatitis, UTI, gastroenteritis, AAA, incarcerated hernia, bowel obstruction, constipation, inflammatory bowel, hepatitis, peptic ulcer disease, splenic infarction, perforated viscus, vulvitis, ovarian torsion, PID, kidney stone, placenta abruption, this is not meant to be an all-inclusive list EKG interpreted by me (3pts min.). @ -None done X-rays interpreted by me (1pt min.). @ -NOn obstructive KUB CT interpreted by me (1pt min.). @ -[None done] U/S interpreted by me (1pt. min.). @ -[None done] What testing was considered but not performed or refused? (CT, X-rays, U/S, labs)? Why? @ -CT however patient had significant improvement in pain What meds were considered but not given or refused? Why? @ -[None] Did you discuss the management of the patient with other professionals (professionals i.e. IVANNA Villatoro, TIMBER SELECTOR, lab, RT, psych nurse, public health social worker, product tester, teacher, intelligence officer basic, assistant case manager)? Give summary @ -[No] Was smoking cessation discussed for >3mins.? @ -[No] Was critical care preformed (if so, how long)? @ -[No] Were there social determinants of health that impacted care today? How? (Homelessness, low income, unemployed, alcoholism, drug addiction, transportation, low edu. Level, literacy, decrease access to med. care, half-way, rehab)? @ -[No] Was there de-escalation of care discussed even if they declined (Discuss DNR or withdrawal of care, Hospice)? DNR status @ -[No] What co-morbidities impacted this encounter? (DM, HTN, Smoking, COPD, CAD, Cancer, CVA, ARF, Chemo, Hep., AIDS, mental health diagnosis, sleep apnea, morbid obesity)? @ -[None] Was patient admitted / discharged? Hospital course, mention meds given and route , prescriptions, significant lab abnormalities, going to OR and other pertinent info. @ -Vitals are stable. CBC and CMP are unremarkable. Urinalysis did show 3+ ketones. Influenza RSV and COVID-19 are negative. XR KUB showed a nonobstructive bowel gas pattern. Patient given pain medication and nausea medication. Feeling much better. Repeat abdominal exam revealed a nontender abdomen. Patient to be discharged home. However if he gets worsening abdominal pain he should return for CAT scan which she is aware of. Undiagnosed new problem with uncertain prognosis? @ -[No] Drug Therapy requiring intensive monitoring for toxicity (Heparin, Nitro, Insulin, Cardizem)? @ -[No] Were any procedures done? @ -[No] Diagnosis/symptom? @ -Abdominal pain, nausea vomiting Acute, or Chronic, or Acute on Chronic? @ -Acute Uncomplicated (without systemic symptoms) or Complicated (systemic symptoms)? @ -Uncomplicated Side effects of treatment? @ -[No] Exacerbation, Progression, or Severe Exacerbation? @ -[No] Poses a threat to life or bodily function? How? (Chest pain, USA, PR, pneumonia, PE, COPD, DKA, ARF, appy, cholecystitis, CVA, Diverticulitis, Homicidal, Suicidal, threat to staff... and all critical care pts) @ -[No] - Lab Data Result diagrams: 04/26/23 10:39 04/26/23 10:39 Lab Results 04/26/23 04/26/23 04/26/23 Range/Units 10:39 10:39 10:39 WBC 8.6 (3.8-10.6) k/uL RBC 5.79 (4.30-5.90) m/uL Hgb 17.0 (13.0-17.5) gm/dL Hct 48.7 (39.0-53.0) % MCV 84.1 (80.0-100.0) fL MCH 29.3 (25.0-35.0) pg MCHC 34.9 (31.0-37.0) g/dL RDW 11.7 (11.5-15.5) % Plt Count 200 (150-450) k/uL MPV 7.1 Neutrophils % 79 % Lymphocytes % 11 % Monocytes % 6 % Eosinophils % 2 % Basophils % 1 % Neutrophils # 6.7 (1.3-7.7) k/uL Lymphocytes # 1.0 (1.0-4.8) k/uL Monocytes # 0.5 (0-1.0) k/uL Eosinophils # 0.1 (0-0.7) k/uL Basophils # 0.1 (0-0.2) k/uL Sodium 138 (137-145) mmol/L Potassium 4.3 (3.5-5.1) mmol/L Chloride 104 (98-107) mmol/L Carbon Dioxide 25 (22-30) mmol/L Anion Gap 9 mmol/L BUN 19 (9-20) mg/dL Creatinine 0.81 (0.66-1.25) mg/dL Est GFR (CKD-EPI)AfAm >90 (>60 ml/min/1.73 sqM) Est GFR (CKD-EPI)NonAf >90 (>60 ml/min/1.73 sqM) Glucose 93 (74-99) mg/dL Calcium 9.6 (8.4-10.2) mg/dL Total Bilirubin 0.6 (0.2-1.3) mg/dL AST 31 (17-59) U/L ALT 20 (4-49) U/L Alkaline Phosphatase 75 (38-126) U/L Total Protein 7.1 (6.3-8.2) g/dL Albumin 4.4 (3.5-5.0) g/dL Amylase 55 (30-110) U/L Lipase 39 (23-300) U/L Urine Color Yellow Urine Appearance Clear (Clear) Urine pH 8.0 (5.0-8.0) Ur Specific [place] 1.034 (1.001-1.035) Urine Protein 1+ H (Negative) Urine Glucose (UA) Negative (Negative) Urine Ketones 3+ H (Negative) Urine Blood Negative (Negative) Urine Nitrite Negative (Negative) Urine Bilirubin Negative (Negative) Urine Urobilinogen 2.0 (<2.0) mg/dL Ur Leukocyte Esterase Negative (Negative) Urine RBC 2 (0-5) /hpf Urine WBC <1 (0-5) /hpf Ur Squamous Epith Cells <1 (0-4) /hpf Calcium Oxalate Crystal Rare H (None) /hpf Urine Mucus Occasional H (None) /hpf Influenza Type A (PCR) (Not Detectd) Influenza Type B (PCR) (Not Detectd) RSV (PCR) (Not Detectd) SARS-CoV-2 (PCR) (Not Detectd) 04/26/23 Range/Units 10:39 WBC (3.8-10.6) k/uL RBC (4.30-5.90) m/uL Hgb (13.0-17.5) gm/dL Hct (39.0-53.0) % MCV (80.0-100.0) fL MCH (25.0-35.0) pg MCHC (31.0-37.0) g/dL RDW (11.5-15.5) % Plt Count (150-450) k/uL MPV Neutrophils % % Lymphocytes % % Monocytes % % Eosinophils % % Basophils % % Neutrophils # (1.3-7.7) k/uL Lymphocytes # (1.0-4.8) k/uL Monocytes # (0-1.0) k/uL Eosinophils # (0-0.7) k/uL Basophils # (0-0.2) k/uL Sodium (137-145) mmol/L Potassium (3.5-5.1) mmol/L Chloride (98-107) mmol/L Carbon Dioxide (22-30) mmol/L Anion Gap mmol/L BUN (9-20) mg/dL Creatinine (0.66-1.25) mg/dL Est GFR (CKD-EPI)AfAm (>60 ml/min/1.73 sqM) Est GFR (CKD-EPI)NonAf (>60 ml/min/1.73 sqM) Glucose (74-99) mg/dL Calcium (8.4-10.2) mg/dL Total Bilirubin (0.2-1.3) mg/dL AST (17-59) U/L ALT (4-49) U/L Alkaline Phosphatase (38-126) U/L Total Protein (6.3-8.2) g/dL Albumin (3.5-5.0) g/dL Amylase (30-110) U/L Lipase (23-300) U/L Urine Color Urine Appearance (Clear) Urine pH (5.0-8.0) Ur Specific [place] (1.001-1.035) Urine Protein (Negative) Urine Glucose (UA) (Negative) Urine Ketones (Negative) Urine Blood (Negative) Urine Nitrite (Negative) Urine Bilirubin (Negative) Urine Urobilinogen (<2.0) mg/dL Ur Leukocyte Esterase (Negative) Urine RBC (0-5) /hpf Urine WBC (0-5) /hpf Ur Squamous Epith Cells (0-4) /hpf Calcium Oxalate Crystal (None) /hpf Urine Mucus (None) /hpf Influenza Type A (PCR) Not Detected (Not Detectd) Influenza Type B (PCR) Not Detected (Not Detectd) RSV (PCR) Not Detected (Not Detectd) SARS-CoV-2 (PCR) Not Detected (Not Detectd) Disposition Clinical Impression: Abdominal pain, Nausea and vomiting Disposition: HOME SELF-CARE Condition: Good Instructions (If sedation given, give patient instructions): Abdominal Pain (ED) Additional Instructions: Please take Zofran as directed. Take Motrin and Tylenol for pain. If symptoms worsen return to the emergency room. Prescriptions: Ondansetron Odt [Zofran Odt] 4 mg PO Q8HR PRN #14 tab PRN Reason: Nausea Is patient prescribed a controlled substance at d/c from ED?: No Referrals: Suzie Norman MD [Primary Care Provider] - 1-2 days Time of Disposition: 12:45
[2023-04-26 10:56] LABS: Basophils # (A) 0.1 k/uL (0-0.2); Basophils % (A) 1 %; Eosinophils # (A) 0.1 k/uL (0-0.7); Eosinophils % (A) 2 %; HCT 48.7 % (39.0-53.0); Lymphocytes % (A) 11 %; MCH 29.3 pg (25.0-35.0); MCHC 34.9 g/dL (31.0-37.0); MCV 84.1 fL (80.0-100.0); Mean Platelet Volume 7.1; Monocytes # (A) 0.5 k/uL (0-1.0); Monocytes % (A) 6 %; Neutrophils # (A) 6.7 k/uL (1.3-7.7); Neutrophils % (A) 79 %; Platelet Count 200 k/uL (150-450); RBC 5.79 m/uL (4.30-5.90); RDW 11.7 % (11.5-15.5); WBC 8.6 k/uL (3.8-10.6)
--- NOTE | 2023-04-26 11:11 | XR ---
EXAMINATION TYPE: XR KUB DATE OF EXAM: 04/26/2023 11:04 AM CLINICAL HISTORY: Abdominal pain with nausea and vomiting TECHNIQUE: Two Upright KUB images of the abdomen are obtained. COMPARISON: None. FINDINGS: Gas is seen in nondistended stomach. Scattered gas is seen in non-distended small and large bowel loops. There is no visceromegaly, pneumoperitoneum, or abnormal calcification appreciated. The lung bases are clear and the osseous structures are intact. IMPRESSION: Overall nonobstructive bowel gas pattern.
[2023-04-26 11:16] LABS: ALT 20 U/L (4-49); AST 31 U/L (17-59); African American GFR (CKD) >90 (>60 ml/min/1.73 sqM); Albumin 4.4 g/dL (3.5-5.0); Alkaline Phosphatase 75 U/L (38-126); Amylase 55 U/L (30-110); Anion Gap 9 mmol/L; Blood Urea Nitrogen 19 mg/dL (9-20); Calcium 9.6 mg/dL (8.4-10.2); Carbon Dioxide 25 mmol/L (22-30); Chloride 104 mmol/L (98-107); Glucose 93 mg/dL (74-99); Lipase 39 U/L (23-300); Non-African American GFR(CKD) >90 (>60 ml/min/1.73 sqM); Potassium 4.3 mmol/L (3.5-5.1); Sodium 138 mmol/L (137-145); Total Bilirubin 0.6 mg/dL (0.2-1.3); Total Protein 7.1 g/dL (6.3-8.2)
[2023-04-26 11:30] VITALS: RESP 18
[2023-04-26 11:46] LABS: Appearance,Urine Clear (Clear); Bilirubin,Urine Negative (Negative); Blood,Urine Negative (Negative); Calcium Oxalate Crystals,Urine Rare /hpf; Color,Urine Yellow; Glucose,Urine (UA) Negative (Negative); Ketones,Urine 3+ (Negative); Leukocyte Esterase,Urine Negative (Negative); Mucus,Urine Occasional /hpf; Nitrite,Urine Negative (Negative); Protein,Urine 1+ (Negative); RBC,Urine 2 /hpf (0-5); Specific Gravity,Urine 1.034 (1.001-1.035); Squamous Epithelial Cell,Urine <1 /hpf (0-4); WBC,Urine <1 /hpf (0-5)
[2023-04-26 13:20] VITALS: BP 111/69; PULSE 73
== END 2023-04-26 12:55 | disposition home or self-care (01) ==
LOC: EC 09:32
DX: R11.2 Nausea with vomiting, unspecified (principal); R10.9 Unspecified abdominal pain; F12.90 Cannabis use, unspecified, uncomplicated; F17.290 Nicotine dependence, other tobacco product, uncomplicated; Z20.822 Contact with and (suspected) exposure to COVID-19
CPT/HCPCS: 36415; 80053; 82150; 83690; 85025; 81001; 87636; 74018; 99284; 96374; 96375; 96361; J2270; J2405

== ENCOUNTER 2023-04-28 07:08 | Emergency (ER) | payer OTHER ==
[2023-04-28 08:37] VITALS: TEMP 98.1
[2023-04-28] MEDS: PANTOPRAZOLE 40 MG/10 ML VIAL IVP STA (08:37)
[2023-04-28] MEDS: diphenhydrAMINE 50 MG/ML 1 ML VIAL IVP STA (08:38)
[2023-04-28] MEDS: HALOPERIDOL LACTATE 5 MG/ML 1 ML VIAL IVP STA (08:39)
[2023-04-28] MEDS: SODIUM CHLORIDE 0.9% 1,000 ML IV STA ×2 (08:40→09:56)
--- NOTE | 2023-04-28 08:43 | ED ---
General Adult HPI - General Chief complaint: Abdominal Pain Stated complaint: Adominal Pain Time Seen by Provider: 04/28/23 08:00 Source: patient, RN notes reviewed, old records reviewed Mode of arrival: ambulatory Limitations: no limitations - History of Present Illness Initial comments: Is a 22-year-old male who presents as a reevaluation for abdominal pain, nausea, vomiting, diarrhea. Symptoms have been ongoing for 5 days now. Started last . Did present recently to the ER and workup was unremarkable and discharged home. He returns for continued symptoms. Is still having what he describes as nonbloody emesis as well as intermittent nonbloody diarrhea with left-sided abdominal pain. Does have a history of marijuana use. Has been attempting to use Zofran at home without much improvement in symptoms. Presents for reevaluation at this time. Denies any fevers or chills. Denies any known sick contacts. - Related Data Home Medications Medication Instructions Recorded Confirmed Acetaminophen [Tylenol Extra 1,000 mg PO DAILY PRN 12/02/16 12/02/16 Strength] Dm/Acetaminophen/Doxylamine [Vicks 30 ml PO HS PRN 12/02/16 12/02/16 Nyquil Cold & Flu Liquid] Phenylephrine/Dm/Acetaminop/GG 30 ml PO DAILY PRN 12/02/16 12/02/16 [Vicks Dayquil Severe Cold-Flu] guaiFENesin SYRUP 100MG/5ML 400 mg PO DAILY PRN 12/02/16 12/02/16 [Robitussin] Previous Rx's Medication Instructions Recorded Amoxicillin/Potassium Clav 1 tab PO Q12HR #20 tab 12/02/16 [Augmentin 875-125 Tablet] Hydrocodone/Acetaminophen [[place] 1 each PO Q6HR PRN #15 tab 12/11/16 5-325] Ibuprofen [Motrin] 600 mg PO Q6HR PRN #40 day 12/11/16 Amoxic-Pot Clav 875-125Mg 1 tab PO Q12HR #20 tab 03/12/22 [Augmentin 875-125] Amoxic-Pot Clav 875-125Mg 1 tab PO Q12HR #20 tab 03/12/22 [Augmentin 875-125] HYDROcodone/APAP 5-325MG [[place] 1 tab PO Q6HR PRN 3 Days #12 tab 03/12/22 5-325] Ibuprofen [Motrin] 600 mg PO Q8HR PRN #20 tab 03/12/22 Ibuprofen [Motrin] 600 mg PO Q8HR PRN #20 tab 03/12/22 Albuterol Inhaler [Ventolin Hfa 1 - 2 puff INHALATION Q6H PRN #1 08/10/22 Inhaler] each Ipratropium [place] 0.06%Nasal 2 spray EA NOSTRIL BID #15 ml 08/10/22 [Atrovent Nasal 0.06%] Acetaminophen-Codeine 300-30mg 1 tab PO Q6H PRN 3 Days #12 tablet 12/16/22 [Tylenol w/codeine #3] Amoxic-Pot Clav 875-125Mg 1 tab PO BID 7 Days #14 tab 12/16/22 [Augmentin 875-125] Ondansetron Odt [Zofran Odt] 4 mg PO Q8HR PRN #14 tab 04/26/23 Dicyclomine [Bentyl] 10 mg PO TID PRN 7 Days #21 capsule 04/28/23 Famotidine [Pepcid] 10 mg PO DAILY 14 Days #14 tab 04/28/23 Allergies Allergy/AdvReac Type Severity Reaction Status Date / Time No Known Allergies Allergy Verified 04/26/23 09:38 Review of Systems ROS Statement: Those systems with pertinent positive or pertinent negative responses have been documented in the HPI. Review of Systems: CONST: Denies fever EYES: Denies blurry vision ENT: Denies nasal congestion C/V: Denies Chest pain RESP: Denies shortness of breath GI: Endorses abdominal pain : Denies dysuria SKIN: Denies rash. MSK: Denies joint pain. NEURO: Denies headache ROS Other: All systems not noted in ROS Statement are negative. Past Medical History Past Medical History: No Reported History History of Any Multi-Drug Resistant Organisms: None Reported Past Surgical History: Orthopedic Surgery Past Psychological History: No Psychological Hx Reported Smoking Status: Vaper Past Alcohol Use History: Occasional Past Drug Use History: Marijuana General Exam - General Exam Comments Initial Comments: General: Appears in no acute distress. HEAD: Normal with no signs of head trauma. EYES: PERRLA, EOMI, conjunctiva normal, no discharge. ENT: Hearing grossly intact, normal oropharynx. RESPIRATORY: Clear breath sounds bilaterally. No wheezes, rales, or rhonchi. C/V: Regular rate and rhythm. S1 and S2 auscultated, no edema, peripheral pulses 2+ and intact throughout ABD: Abdomen soft, nondistended. Tender to palpation over the left abdomen. No guarding. No rebound tenderness. No peritoneal signs. No flank pain. EXT: Normal range of motion, no obvious deformity SKIN: No rashes or lesions observed on exposed skin. NEURO: Alert and oriented x 4. Limitations: no limitations Course Vital Signs 04/28/23 04/28/23 04/28/23 07:32 08:27 10:00 Temperature 99.1 F 98.1 F Pulse Rate 67 67 61 Respiratory 18 22 20 Rate Blood Pressure 106/75 112/79 115/66 O2 Sat by Pulse 98 99 99 Oximetry Medical Decision Making - Medical Decision Making Was pt. sent in by a medical professional or institution (, PA, BUSINESS DEVELOPMENT SPECIALIST, urgent ca re, hospital, or prison...) When possible be specific @ -No Did you speak to anyone other than the patient for history (EMS, parent, family, police, friend...)? What history was obtained from this source @ -No Did you review nursing and triage notes (agree or disagree)? Why? @ -I reviewed and agree with nursing and triage notes Were old charts reviewed (outside hosp., previous admission, EMS record, old EKG, old radiological studies, urgent care reports/EKG's, prison records)? Report findings @ -Old charts reviewed Differential Diagnosis (chest pain, altered mental status, abdominal pain women, abdominal pain men, vaginal bleeding, weakness, fever, dyspnea, syncope, heada juliana, dizziness, GI bleed, back pain, seizure, CVA, palpatations, mental health, musculoskeletal)? @ -Differential Abdominal Pain Men: Appendicitis, cholecystitis, diverticulosis, ischemic bowel, pancreatitis, hepatitis, UTI, gastroenteritis, AAA, incarcerated hernia, bowel obstruction, constipation, inflammatory bowel, hepatitis, peptic ulcer disease, splenic infarction, perforated viscus, testicular torsion, this is not meant to be an all-inclusive list EKG interpreted by me (3pts min.). @ -As above X-rays interpreted by me (1pt min.). @ -None done CT interpreted by me (1pt min.). @ - U/S interpreted by me (1pt. min.). @ -None done What testing was considered but not performed or refused? (CT, X-rays, U/S, labs)? Why? @ -None What meds were considered but not given or refused? Why? @ -None Did you discuss the management of the patient with other professionals (professionals i.e. , PA, BUSINESS DEVELOPMENT SPECIALIST, lab, RT, psych nurse, secondary social studies teacher, neurophysiologist, teacher, fire officer, heel caser)? Give summary @ -No Was smoking cessation discussed for >3mins.? @ -No Was critical care preformed (if so, how long)? @ -No Were there social determinants of health that impacted care today? How? (H omelessness, low income, unemployed, alcoholism, drug addiction, transportation, low edu. Level, literacy, decrease access to med. care, [place] [facility], rehab)? @ -No Was there de-escalation of care discussed even if they declined (Discuss DNR or withdrawal of care, Hospice)? DNR status @ -No What co-morbidities impacted this encounter? (DM, HTN, Smoking, COPD, CAD, Cancer, CVA, ARF, Chemo, Hep., AIDS, mental health diagnosis, sleep apnea, morbid obesity)? @ -None Was patient admitted / discharged? Hospital course, mention meds given and route, prescriptions, significant lab abnormalities, going to OR and other pertinent info. @ -Based on the patient's presentation and physical exam, he presents emergency department with continued abdominal pain, nausea, vomiting, diarrhea for 5 days. Presents as a reevaluation. Vital signs are within acceptable limits. We will obtain CT abdomen pelvis at this time, and symptomatically treat the patient with IV fluids, Haldol, Benadryl, Protonix. Patient was in agreement this plan. EKG shows no signs of acute ischemia.Patient's laboratory studies are within acceptable limits. 2+ ketones in the urine likely secondary to emesis. As this is second visit with continued complaints I did recommend CT imaging which she was in agreement. He was dosed analgesia medications at this time as well. CT abdomen pelvis reveals no obvious acute intra-abdominal process. On reevaluation, patient is feeling improved. I discussed observation admission versus discharge and I believe it is safe for him to be discharged home and he was in agreement with this plan. He will be given analgesia medications and antiemetics for home. Patient was in agreement this plan. Strict return precautions discussed. I will provide the patient with a prescription for ODT Zofran, starter pack of Tylenol 3, Bentyl, Pepcid etiology, nausea and vomiting. I instructed the patient to follow up with their PCP in the next 1-3 days.. I explained that the patient should return to the emergency department if they experience any worsening symptoms. Strict return precautions were discussed with the patient. The patient expressed understanding of these instructions. I answered all questions that the patient had. The patient was discharged home in fair condition with their prescriptions and follow up information. Undiagnosed new problem with uncertain prognosis? @ -No Drug Therapy requiring intensive monitoring for toxicity (Heparin, Nitro, Insulin, Cardizem)? @ -No Were any procedures done? @ -No Diagnosis/symptom? @ -Abdominal pain of unknown etiology, nausea and vomiting Acute, or Chronic, or Acute on Chronic? @ -Acute Uncomplicated (without systemic symptoms) or Complicated (systemic symptoms)? @ -Complicated Side effects of treatment? @ -None Exacerbation, Progression, or Severe Exacerbation] @ -No Poses a threat to life or bodily function? @ -No - Lab Data Result diagrams: 04/28/23 08:39 04/28/23 08:39 Lab Results 04/28/23 04/28/23 04/28/23 Range/Units 08:39 08:39 08:39 WBC 6.3 (3.8-10.6) k/uL RBC 5.58 (4.30-5.90) m/uL Hgb 16.1 (13.0-17.5) gm/dL Hct 46.9 (39.0-53.0) % MCV 84.1 (80.0-100.0) fL MCH 28.9 (25.0-35.0) pg MCHC 34.4 (31.0-37.0) g/dL RDW 11.7 (11.5-15.5) % Plt Count 225 (150-450) k/uL MPV 7.2 Neutrophils % 67 % Lymphocytes % 21 % Monocytes % 7 % Eosinophils % 2 % Basophils % 1 % Neutrophils # 4.2 (1.3-7.7) k/uL Lymphocytes # 1.3 (1.0-4.8) k/uL Monocytes # 0.4 (0-1.0) k/uL Eosinophils # 0.2 (0-0.7) k/uL Basophils # 0.0 (0-0.2) k/uL PT (10.0-12.5) sec INR (<1.2) APTT (22.0-30.0) sec Sodium 139 (137-145) mmol/L Potassium 3.9 (3.5-5.1) mmol/L Chloride 104 (98-107) mmol/L Carbon Dioxide 24 (22-30) mmol/L Anion Gap 11 mmol/L BUN 15 (9-20) mg/dL Creatinine 0.79 (0.66-1.25) mg/dL Est GFR (CKD-EPI)AfAm >90 (>60 ml/min/1.73 sqM) Est GFR (CKD-EPI)NonAf >90 (>60 ml/min/1.73 sqM) Glucose 90 (74-99) mg/dL Plasma Lactic Acid Angel Luis (0.7-2.0) mmol/L Calcium 9.4 (8.4-10.2) mg/dL Total Bilirubin 0.7 (0.2-1.3) mg/dL AST 33 (17-59) U/L ALT 20 (4-49) U/L Alkaline Phosphatase 70 (38-126) U/L Total Protein 6.9 (6.3-8.2) g/dL Albumin 4.4 (3.5-5.0) g/dL Amylase 57 (30-110) U/L Lipase 43 (23-300) U/L Urine Color Yellow Urine Appearance Clear (Clear) Urine pH 6.5 (5.0-8.0) Ur Specific [place] 1.022 (1.001-1.035) Urine Protein Trace H (Negative) Urine Glucose (UA) Negative (Negative) Urine Ketones 2+ H (Negative) Urine Blood Negative (Negative) Urine Nitrite Negative (Negative) Urine Bilirubin Negative (Negative) Urine Urobilinogen 2.0 (<2.0) mg/dL Ur Leukocyte Esterase Negative (Negative) 04/28/23 04/28/23 Range/Units 08:39 08:50 WBC (3.8-10.6) k/uL RBC (4.30-5.90) m/uL Hgb (13.0-17.5) gm/dL Hct (39.0-53.0) % MCV (80.0-100.0) fL MCH (25.0-35.0) pg MCHC (31.0-37.0) g/dL RDW (11.5-15.5) % Plt Count (150-450) k/uL MPV Neutrophils % % Lymphocytes % % Monocytes % % Eosinophils % % Basophils % % Neutrophils # (1.3-7.7) k/uL Lymphocytes # (1.0-4.8) k/uL Monocytes # (0-1.0) k/uL Eosinophils # (0-0.7) k/uL Basophils # (0-0.2) k/uL PT 11.1 (10.0-12.5) sec INR 1.0 (<1.2) APTT 26.3 (22.0-30.0) sec Sodium (137-145) mmol/L Potassium (3.5-5.1) mmol/L Chloride (98-107) mmol/L Carbon Dioxide (22-30) mmol/L Anion Gap mmol/L BUN (9-20) mg/dL Creatinine (0.66-1.25) mg/dL Est GFR (CKD-EPI)AfAm (>60 ml/min/1.73 sqM) Est GFR (CKD-EPI)NonAf (>60 ml/min/1.73 sqM) Glucose (74-99) mg/dL Plasma Lactic Acid Angel Luis 0.8 (0.7-2.0) mmol/L Calcium (8.4-10.2) mg/dL Total Bilirubin (0.2-1.3) mg/dL AST (17-59) U/L ALT (4-49) U/L Alkaline Phosphatase (38-126) U/L Total Protein (6.3-8.2) g/dL Albumin (3.5-5.0) g/dL Amylase (30-110) U/L Lipase (23-300) U/L Urine Color Urine Appearance (Clear) Urine pH (5.0-8.0) Ur Specific [place] (1.001-1.035) Urine Protein (Negative) Urine Glucose (UA) (Negative) Urine Ketones (Negative) Urine Blood (Negative) Urine Nitrite (Negative) Urine Bilirubin (Negative) Urine Urobilinogen (<2.0) mg/dL Ur Leukocyte Esterase (Negative) - EKG Data -: EKG Interpreted by Me EKG Comments: 12-lead Electrocardiogram Interpretation Note EKG was reviewed and interpreted by myself. 12-lead ECG performed at 0818 is interpreted by me as revealing normal sinus rhythm with right bundle branch block at a rate of 72 beats per minute. [place] is normal. [place] interval is 152 ms, QRS duration is 106 ms, QTc is 436 ms.. There were no ST or T wave a bnormalities to suggest myocardial ischemia or injury. R wave progression across the precordium was satisfactory. By my interpretation this EKG is non- diagnostic for acute ischemia. Disposition Clinical Impression: Abdominal pain of unknown etiology, Nausea and vomiting Disposition: HOME SELF-CARE Condition: Fair Instructions (If sedation given, give patient instructions): Abdominal Pain (ED) Prescriptions: Dicyclomine [Bentyl] 10 mg PO TID PRN 7 Days #21 capsule PRN Reason: Pain Famotidine [Pepcid] 10 mg PO DAILY 14 Days #14 tab Is patient prescribed a controlled substance at d/c from ED?: No Referrals: Suzie Norman MD [Primary Care Provider] - 1-2 days Time of Disposition: 10:25
[2023-04-28 08:50] LABS: Basophils % (A) 1 %; Eosinophils # (A) 0.2 k/uL (0-0.7); Eosinophils % (A) 2 %; HCT 46.9 % (39.0-53.0); HGB 16.1 gm/dL (13.0-17.5); Lymphocytes # (A) 1.3 k/uL (1.0-4.8); Lymphocytes % (A) 21 %; MCH 28.9 pg (25.0-35.0); MCHC 34.4 g/dL (31.0-37.0); MCV 84.1 fL (80.0-100.0); Mean Platelet Volume 7.2; Monocytes # (A) 0.4 k/uL (0-1.0); Monocytes % (A) 7 %; Neutrophils # (A) 4.2 k/uL (1.3-7.7); Neutrophils % (A) 67 %; Platelet Count 225 k/uL (150-450); RBC 5.58 m/uL (4.30-5.90); RDW 11.7 % (11.5-15.5); WBC 6.3 k/uL (3.8-10.6)
[2023-04-28 09:03] LABS: ALT 20 U/L (4-49); AST 33 U/L (17-59); African American GFR (CKD) >90 (>60 ml/min/1.73 sqM); Albumin 4.4 g/dL (3.5-5.0); Alkaline Phosphatase 70 U/L (38-126); Amylase 57 U/L (30-110); Anion Gap 11 mmol/L; Blood Urea Nitrogen 15 mg/dL (9-20); Calcium 9.4 mg/dL (8.4-10.2); Carbon Dioxide 24 mmol/L (22-30); Chloride 104 mmol/L (98-107); Glucose 90 mg/dL (74-99); Lipase 43 U/L (23-300); Non-African American GFR(CKD) >90 (>60 ml/min/1.73 sqM); Potassium 3.9 mmol/L (3.5-5.1); Sodium 139 mmol/L (137-145); Total Bilirubin 0.7 mg/dL (0.2-1.3); Total Protein 6.9 g/dL (6.3-8.2)
[2023-04-28 09:07] LABS: Appearance,Urine Clear (Clear); Bilirubin,Urine Negative (Negative); Blood,Urine Negative (Negative); Color,Urine Yellow; Glucose,Urine (UA) Negative (Negative); Ketones,Urine 2+ (Negative); Leukocyte Esterase,Urine Negative (Negative); Nitrite,Urine Negative (Negative); PH, Urine 6.5 (5.0-8.0); Protein,Urine Trace (Negative); Specific Gravity,Urine 1.022 (1.001-1.035)
[2023-04-28 09:18] LABS: Partial Thromboplastin Time 26.3 sec (22.0-30.0); Prothrombin Time 11.1 sec (10.0-12.5)
--- NOTE | 2023-04-28 09:45 | CT ---
EXAMINATION TYPE: CT abdomen pelvis w con CT DLP: 585.8 mGycm, Automated exposure control for dose reduction was used. DATE OF EXAM: 04/28/2023 9:32 AM COMPARISON: None. CLINICAL INDICATION:Male, 22 years old with history of abdominal pain, left sided; LEFT SIDED ABDOMIN AL PAIN, N,V. TECHNIQUE: Axial CT abdomen pelvis w con;Sagittal and coronal reformats were created on a separate w orkstation. Contrast used:100 mL of Isovue 300 with IV Contrast, (none if empty) Oral contrast used: without Oral Contrast (none if empty) FINDINGS: LOWER CHEST: Unremarkable ABDOMEN LIVER: Unremarkable GALLBLADDER AND BILE DUCTS: Unremarkable. PANCREAS: Unremarkable. SPLEEN: Unremarkable. ADRENAL GLANDS: Unremarkable. KIDNEYS AND URETERS: No evidence of hydronephrosis or renal calculus. The ureters are unremarkable. PELVIS BLADDER: Unremarkable REPRODUCTIVE: Unremarkable. ABDOMEN & PELVIS STOMACH AND BOWEL: No evidence of bowel obstruction. The appendix is normal. PERITONEUM/RETROPERITONEUM: No evidence of pneumoperitoneum or free fluid. VASCULATURE: No evidence of aortic aneurysm. MUSCULOSKELETAL: No acute osseous abnormalities LYMPH NODES: No gross evidence for lymphadenopathy. Prominent lymph nodes throughout the mesentery wh ich may normal in young patients. SOFT TISSUE/ABDOMINAL WALL: Unremarkable IMPRESSION: No evidence for obstructive uropathy or diverticulitis. No obvious acute process to explain the patie nt's pain.
[2023-04-28] MEDS: ONDANSETRON 4 MG/2 ML VIAL IVP STA (09:53)
[2023-04-28] MEDS: MORPHINE SULFATE 4 MG/ML SYRINGE IVP STA (09:58)
[2023-04-28] MEDS: ONDANSETRON 4 MG ODT STARTER PACK 2 TAB BTL PO STA (10:40)
[2023-04-28] MEDS: ACET/COD 300 MG/30 MG STARTER PACK 6 TAB BTL PO STA (10:40)
[2023-04-28 10:44] VITALS: BP 115/66; PULSE 61; RESP 20
== END 2023-04-28 10:58 | disposition home or self-care (01) ==
LOC: EC 07:08
DX: R10.9 Unspecified abdominal pain (principal); R11.2 Nausea with vomiting, unspecified; I45.10 Unspecified right bundle-branch block; F17.290 Nicotine dependence, other tobacco product, uncomplicated; F12.90 Cannabis use, unspecified, uncomplicated
CPT/HCPCS: 36415; 93005; 80053; 82150; 83605; 83690; 85025; 85610; 85730; 81003; 74177; 99285; 96374; 96375 ×4; 96361 ×2; J2270; J1200; J1630; J2405; S0119; C9113; Q9967

== ENCOUNTER 2024-06-26 09:05 | Emergency (ER) | payer OTHER ==
--- NOTE | 2024-06-26 09:36 | XR ---
KUB. CLINICAL INDICATION: Male, 24 years old with history of abdominal pain, Abdominal pain. COMPARISON: None. TECHNIQUE: 2 upright views of the abdomen were obtained. FINDINGS: The lung bases are clear. There is no free intraperitoneal air beneath the diaphragm. The bowel gas pattern is nonspecific and there is no evidence of obstruction. No suspicious abdominal or pelvic calcifications are seen. The osseous structures are intact. IMPRESSION: Nonspecific abdomen without evidence of free air or obstruction. No interval change [facility], , 06/26/2024 9:33 AM
[2024-06-26 10:24] LABS: Basophils # (A) 0.03 10*3/uL (0.00-0.10); Basophils % (A) 0.3 %; Eosinophils % (A) 1.1 %; HCT 40.5 % (39.6-50.0); HGB 14.5 g/dL (13.0-17.0); Lymphocytes # (A) 1.63 10*3/uL (0.90-5.00); Lymphocytes % (A) 17.5 %; MCH 29.6 pg (27.0-32.0); MCHC 35.8 g/dL (32.0-37.0); MCV 82.7 fL (80.0-97.0); Mean Platelet Volume 8.9 fL (9.5-12.2); Monocytes # (A) 0.58 10*3/uL (0.20-1.00); Monocytes % (A) 6.2 %; Neutrophils # (A) 6.94 10*3/uL (1.80-7.70); Neutrophils % (A) 74.8 %; Platelet Count 219 10*3/uL (140-440); RDW 11.4 % (11.5-14.5); WBC 9.29 10*3/uL (4.50-10.00)
--- NOTE | 2024-06-26 10:38 | ED ---
General Adult HPI - General Chief complaint: Abdominal Pain Stated complaint: ABD Pain Time Seen by Provider: 06/26/24 09:50 Source: patient, RN notes reviewed Mode of arrival: ambulatory Limitations: no limitations - History of Present Illness Initial comments: 24-year-old male presents to the emergency department for evaluation of left upper abdominal pain. Patient states that this been going on for around a week. He was seen in urgent care 3 to 4 days ago for the symptoms. He was prescribed ibuprofen and a muscle relaxer. He does note that this helps him but pain comes back once this wears off. He does note that the pain is worse with movement. He did have 1 episode of vomiting with the pain. He denies any changes in his bowel habits. Denies any urinary symptoms. Denies fever, chills. - Related Data Home Medications Medication Instructions Recorded Confirmed Acetaminophen [Tylenol Extra 1,000 mg PO DAILY PRN 12/02/16 12/02/16 Strength] Dm/Acetaminophen/Doxylamine [Vicks 30 ml PO HS PRN 12/02/16 12/02/16 Nyquil Cold & Flu Liquid] Phenylephrine/Dm/Acetaminop/GG 30 ml PO DAILY PRN 12/02/16 12/02/16 [Vicks Dayquil Severe Cold-Flu] guaiFENesin SYRUP 100MG/5ML 400 mg PO DAILY PRN 12/02/16 12/02/16 [Robitussin] Previous Rx's Medication Instructions Recorded Amoxicillin/Potassium Clav 1 tab PO Q12HR #20 tab 12/02/16 [Augmentin 875-125 Tablet] Hydrocodone/Acetaminophen [[place] 1 each PO Q6HR PRN #15 tab 12/11/16 5-325] Ibuprofen [Motrin] 600 mg PO Q6HR PRN #40 day 12/11/16 Amoxic-Pot Clav 875-125Mg 1 tab PO Q12HR #20 tab 03/12/22 [Augmentin 875-125] Amoxic-Pot Clav 875-125Mg 1 tab PO Q12HR #20 tab 03/12/22 [Augmentin 875-125] HYDROcodone/APAP 5-325MG [[place] 1 tab PO Q6HR PRN 3 Days #12 tab 03/12/22 5-325] Ibuprofen [Motrin] 600 mg PO Q8HR PRN #20 tab 03/12/22 Ibuprofen [Motrin] 600 mg PO Q8HR PRN #20 tab 03/12/22 Albuterol Inhaler [Ventolin Hfa 1 - 2 puff INHALATION Q6H PRN #1 08/10/22 Inhaler] each Ipratropium [place] 0.06%Nasal 2 spray EA NOSTRIL BID #15 ml 08/10/22 [Atrovent Nasal 0.06%] Acetaminophen-Codeine 300-30mg 1 tab PO Q6H PRN 3 Days #12 tablet 12/16/22 [Tylenol w/codeine #3] Amoxic-Pot Clav 875-125Mg 1 tab PO BID 7 Days #14 tab 12/16/22 [Augmentin 875-125] Ondansetron Odt [Zofran Odt] 4 mg PO Q8HR PRN #14 tab 04/26/23 Dicyclomine [Bentyl] 10 mg PO TID PRN 7 Days #21 capsule 04/28/23 Famotidine [Pepcid] 10 mg PO DAILY 14 Days #14 tab 04/28/23 Allergies Allergy/AdvReac Type Severity Reaction Status Date / Time No Known Allergies Allergy Verified 06/26/24 09:17 Review of Systems ROS Statement: Those systems with pertinent positive or pertinent negative responses have been documented in the HPI. ROS Other: All systems not noted in ROS Statement are negative. Past Medical History Past Medical History: No Reported History History of Any Multi-Drug Resistant Organisms: None Reported Past Surgical History: Orthopedic Surgery Past Psychological History: No Psychological Hx Reported Smoking Status: Vaper Past Alcohol Use History: Rare Past Drug Use History: Marijuana General Exam Limitations: no limitations General appearance: alert, in no apparent distress Head exam: Present: atraumatic, normocephalic, normal inspection Eye exam: Present: normal appearance, PERRL, EOMI. Absent: scleral icterus, conjunctival injection, periorbital swelling ENT exam: Present: normal exam, mucous membranes moist Neck exam: Present: normal inspection. Absent: tenderness, meningismus, lymphadenopathy Respiratory exam: Present: normal lung sounds bilaterally, chest wall tenderness (Left lateral chest wall tenderness palpation). Absent: respiratory distress, wheezes, rales, rhonchi, stridor Cardiovascular Exam: Present: regular rate, normal rhythm, normal heart sounds. Absent: systolic murmur, diastolic murmur, rubs, gallop, clicks GI/Abdominal exam: Present: soft, tenderness (Left upper quadrant tenderness to palpation), normal bowel sounds. Absent: distended, guarding, rebound, rigid Extremities exam: Present: normal inspection, full ROM, normal capillary refill. Absent: tenderness, pedal edema, joint swelling, calf tenderness Neurological exam: Present: alert, oriented X3 Psychiatric exam: Present: normal affect, normal mood Skin exam: Present: warm, dry, intact, normal color. Absent: rash Course Vital Signs 06/26/24 06/26/24 06/26/24 09:13 11:39 13:53 Temperature 98.2 F Pulse Rate 102 H 74 89 Respiratory 18 18 18 Rate Blood Pressure 115/70 106/72 124/77 O2 Sat by Pulse 96 99 99 Oximetry Medical Decision Making - Medical Decision Making Was pt. sent in by a medical professional or institution (, PA, MARKETING STRATEGY MANAGER, urgent care, hospital, or prison...) When possible be specific @ -[No] Did you speak to anyone other than the patient for history (EMS, parent, family, police, friend...)? What history was obtained from this source @ -[No] Did you review nursing and triage notes (agree or disagree)? Why? @ -[I reviewed and agree with nursing and triage notes] Were old charts reviewed (outside hosp., previous admission, EMS record, old EKG, old radiological studies, urgent care reports/EKG's, prison records)? Report findings @ -[No old charts were reviewed] Differential Diagnosis (chest pain, altered mental status, abdominal pain women, abdominal pain men, vaginal bleeding, weakness, fever, dyspnea, syncope, headache, dizziness, GI bleed, back pain, seizure, CVA, palpatations, mental health, musculoskeletal)? @ -[Differential Abdominal Pain Men: Appendicitis, cholecystitis, diverticulosis, ischemic bowel, pancreatitis, hepatitis, UTI, gastroenteritis, AAA, incarcerated hernia, bowel obstruction, constipation, inflammatory bowel, hepatitis, peptic ulcer disease, splenic infarction, perforated viscus, testicular torsion, this is not meant to be an all-inclusive list EKG interpreted by me (3pts min.). @ -[As above] X-rays interpreted by me (1pt min.). @ -[None done] CT interpreted by me (1pt min.). @ -[None done] U/S interpreted by me (1pt. min.). @ -[None done] What testing was considered but not performed or refused? (CT, X-rays, U/S, labs)? Why? @ -[None] What meds were considered but not given or refused? Why? @ -[None] Did you discuss the management of the patient with other professionals (professionals i.e. DrAdama, PA, MARKETING STRATEGY MANAGER, lab, RT, psych nurse, certified social workers in health care, wire drawing machine operator, teacher, credit administration officer, family independence case manager)? Give summary @ -[No] Was smoking cessation discussed for >3mins.? @ -[No] Was critical care preformed (if so, how long)? @ -[No] Were there social determinants of health that impacted care today? How? (Homelessness, low income, unemployed, alcoholism, drug addiction, transportation, low edu. Level, literacy, decrease access to med. care, fci, rehab)? @ -[No] Was there de-escalation of care discussed even if they declined (Discuss DNR or withdrawal of care, Hospice)? DNR status @ -[No] What co-morbidities impacted this encounter? (DM, HTN, Smoking, COPD, CAD, Cancer, CVA, ARF, Chemo, Hep., AIDS, mental health diagnosis, sleep apnea, morbid obesity)? @ -[None] Was patient admitted / discharged? Hospital course, mention meds given and route, prescriptions, significant lab abnormalities, going to OR and other pertinent info. @ -[hospital course] Undiagnosed new problem with uncertain prognosis? @ -[No] Drug Therapy requiring intensive monitoring for toxicity (Heparin, Nitro, Insulin, Cardizem)? @ -[No] Were any procedures done? @ -[No] Diagnosis/symptom? @ -[default] Acute, or Chronic, or Acute on Chronic? @ -[default] Uncomplicated (without systemic symptoms) or Complicated (systemic symptoms)? @ -[default] Side effects of treatment? @ -[No] Exacerbation, Progression, or Severe Exacerbation? @ -[No] Poses a threat to life or bodily function? How? (Chest pain, [place], [place], pneumonia, PE, COPD, DKA, ARF, appy, cholecystitis, CVA, Diverticulitis, Homicidal, Suicidal, threat to staff... and all critical care pts) @ -[No] - Lab Data Result diagrams: 06/26/24 10:12 06/26/24 10:12 Lab Results 06/26/24 06/26/24 06/26/24 Range/Units 10:12 10:12 11:12 WBC 9.29 (4.50-10.00) 10*3/uL RBC 4.90 (4.40-5.60) 10*6/uL Hgb 14.5 (13.0-17.0) g/dL Hct 40.5 (39.6-50.0) % MCV 82.7 (80.0-97.0) fL MCH 29.6 (27.0-32.0) pg MCHC 35.8 (32.0-37.0) g/dL Plt Count 219 (140-440) 10*3/uL MPV 8.9 L (9.5-12.2) fL Immature Gran % (Auto) 0.1 % Neutrophils % 74.8 % Lymphocytes % 17.5 % Monocytes % 6.2 % Eosinophils % 1.1 % Basophils % 0.3 % Immature Gran # 0.01 (0.00-0.04) 10*3/uL Neutrophils # 6.94 (1.80-7.70) 10*3/uL Lymphocytes # 1.63 (0.90-5.00) 10*3/uL Monocytes # 0.58 (0.20-1.00) 10*3/uL Eosinophils # 0.10 (0.04-0.35) 10*3/uL Basophils # 0.03 (0.00-0.10) 10*3/uL Sodium 137 (137-145) mmol/L Potassium 4.2 (3.5-5.1) mmol/L Chloride 101 (98-107) mmol/L Carbon Dioxide 31 H (22-30) mmol/L Anion Gap 5 mmol/L BUN 16 (9-20) mg/dL Creatinine 0.80 (0.66-1.25) mg/dL Est GFR (CKD-EPI)AfAm >90 (>60 ml/min/1.73 sqM) Est GFR (CKD-EPI)NonAf >90 (>60 ml/min/1.73 sqM) Glucose 102 H (74-99) mg/dL Calcium 9.5 (8.4-10.2) mg/dL Total Bilirubin 0.4 (0.2-1.3) mg/dL AST 33 (17-59) U/L ALT 37 (4-49) U/L Alkaline Phosphatase 85 (38-126) U/L Total Protein 6.7 (6.3-8.2) g/dL Albumin 4.0 (3.5-5.0) g/dL Amylase 578 H* (30-110) U/L Lipase 4912 H (23-300) U/L Urine Color Colorless Urine Appearance Clear (Clear) Urine pH 6.5 (5.0-8.0) Ur Specific [place] >1.050 H (1.001-1.035) Urine Protein Negative (Negative) Urine Glucose (UA) Negative (Negative) Urine Ketones Negative (Negative) Urine Blood Negative (Negative) Urine Nitrite Negative (Negative) Urine Bilirubin Negative (Negative) Urine Urobilinogen <2.0 (<2.0) mg/dL Ur Leukocyte Esterase Negative (Negative) Disposition Clinical Impression: Pancreatitis Disposition: HOME SELF-CARE Condition: Stable Instructions (If sedation given, give patient instructions): Pancreatitis (ED) Additional Instructions: Please follow-up with your doctor. Return to the emergency department for new or worsening symptoms. Is patient prescribed a controlled substance at d/c from ED?: No Referrals: None,Stated [Primary Care Provider] - 1-2 days
[2024-06-26 10:39] LABS: ALT 37 U/L (4-49); AST 33 U/L (17-59); African American GFR (CKD) >90 (>60 ml/min/1.73 sqM); Alkaline Phosphatase 85 U/L (38-126); Anion Gap 5 mmol/L; Blood Urea Nitrogen 16 mg/dL (9-20); Calcium 9.5 mg/dL (8.4-10.2); Carbon Dioxide 31 mmol/L (22-30); Chloride 101 mmol/L (98-107); Glucose 102 mg/dL (74-99); Non-African American GFR(CKD) >90 (>60 ml/min/1.73 sqM); Potassium 4.2 mmol/L (3.5-5.1); Sodium 137 mmol/L (137-145); Total Bilirubin 0.4 mg/dL (0.2-1.3); Total Protein 6.7 g/dL (6.3-8.2)
--- NOTE | 2024-06-26 11:12 | CT ---
EXAMINATION TYPE: CT abdomen pelvis w con DATE OF EXAM: 06/26/2024 COMPARISON: 04/28/2023 CLINICAL INDICATION: Male, 24 years old with history of LUQ pain; PHH, LUQ PAIN TECHNIQUE: Performed without Oral Contrast and with IV Contrast, patient injected with 100 mL of Isovue 300. CT DLP: 607.[address] CTDI: mGy Automated exposure control for dose reduction was used. FINDINGS: The lung bases are clear. The gallbladder is normal without distention, wall thickening, pericholecystic fluid or gallstones. T here is no biliary ductal dilatation. There is no focal mass or organomegaly involving the liver, pancreas, spleen or adrenal glands. There is no solid renal mass or hydronephrosis and there is homogeneous contrast enhancement of the r enal parenchyma. The caliber the abdominal aorta is normal is no retroperitoneal adenopathy or hemorr toshia. The bowel loops are normal in caliber and there is no evidence of dilatation or obstruction. No infla mmatory changes are identified in the bowel wall or mesentery. There is no free intraperitoneal air or fluid. No pelvic mass, free fluid, abscess or adenopathy. There are no focal osseous lesions. There is a 2.4 cm fat-containing inguinal hernia which is mildly larger in size compared to previous. IMPRESSION: 1. 2.4 cm fat-containing right inguinal hernia slightly larger in size compared to the prior study. 2. No acute changes within the abdomen or pelvis. [facility], , 06/26/2024 11:10 AM
[2024-06-26 11:22] LABS: Amylase 578 U/L (30-110); Lipase 4912 U/L (23-300)
[2024-06-26 11:37] LABS: Appearance,Urine Clear (Clear); Bilirubin,Urine Negative (Negative); Blood,Urine Negative (Negative); Color,Urine Colorless; Glucose,Urine (UA) Negative (Negative); Ketones,Urine Negative (Negative); Leukocyte Esterase,Urine Negative (Negative); Nitrite,Urine Negative (Negative); PH, Urine 6.5 (5.0-8.0); Protein,Urine Negative (Negative); Urobilinogen,Urine <2.0 mg/dL (<2.0)
[2024-06-26 11:38] LABS: Specific Gravity,Urine >1.050 (1.001-1.035)
[2024-06-26] MEDS: SODIUM CHLORIDE 0.9% 1,000 ML IV SCH (11:39)
[2024-06-26 15:36] VITALS: BP 118/75; PULSE 87; RESP 20; TEMP 97.4
== END 2024-06-26 15:36 | disposition home or self-care (01) ==
LOC: EC 09:05
DX: K85.90 Acute pancreatitis without necrosis or infection, unspecified (principal); F17.290 Nicotine dependence, other tobacco product, uncomplicated
CPT/HCPCS: 36415; 93005; 80053; 82150; 83690; 85025; 81003; 74018; 74177; 99285; 96360; 96361 ×2; Q9967